=== PATIENT | male | born 1960 | race Caucasian/White ===

== ENCOUNTER 2016-07-18 06:53 | Emergency (ER) | payer BC, OTHER ==
[~2016-07-18] VITALS: Ht 180.3 cm; Wt 107.7 kg
[2016-07-18 06:55] VITALS: Ht 180.3 cm; Wt 107.7 kg
--- OUTSIDE RECORDS SUMMARY | 2016-07-18 06:56 | XMS REPORT | Referral Summary ---
Author Author [facility] Organization [facility] Address Unknown Phone Unavailable Care Team Providers Care Clinical Coder Name Role Phone [facility] Primary Care Physician Unavailable Encounter [facility] [id number] Date(s): 08/23/15 - 08/23/15 [facility] [address] [place] [address] [facility] Discharge Diagnosis: Hyperparathyroidism Discharge Disposition: 01-Home or Self Care Attending Physician: Myrna Bridges MD Admitting Physician: Myrna Bridges MD Vital Signs Most recent to 1 oldest [Reference Range]: Peripheral Pulse 78 bpm Rate [60-100 bpm] (08/23/15 8:14 AM) Blood Pressure 141/98 mmHg [90-140/60-90 mmHg] *HI* (08/23/15 8:14 AM) Problem List No data available for this section Allergies, Adverse Reactions, Alerts No Known Medication Allergies Medications atenolol 50 mg oral tablet mg tabs, Oral, Daily, 0 Refill(s) Start Date: 08/23/15 Status: Ordered hydrochlorothiazide 25 mg oral tablet mg tabs, Oral, Daily, 0 Refill(s) Start Date: 08/23/15 Status: Ordered lisinopril 20 mg oral tablet 20 mg 1 tabs, Oral, Daily, # 90 tabs, 1 Refill(s), [facility]acy: [facility] Start Date: 08/23/15 Status: Ordered lovastatin 20 mg oral tablet mg tabs, Oral, Daily, 0 Refill(s) Start Date: 08/23/15 Status: Ordered magnesium oxide Oral, 0 Refill(s) Start Date: 08/23/15 Status: Ordered prefect biotics prefect biotics, 0 Refill(s) Start Date: 08/23/15 Status: Ordered Results No data available for this section Immunizations No data available for this section Procedures No data available for this section Social History Social History Type Response Smoking Status Never smoker Assessment and Plan Extracted from: Title: Consult Note Author: Myrna Bridges MD Date: 08/23/15 Assessment/Plan 1-hyperparathyroidism: Reviewed all results with patient. Differential includes: Hyperparathyroidism vs benign familial hypercaciuric hypercalcemia vs malignancy related. being on hctz will confuse the picture stop hctz for now start lisinopril 20 mg daily in 1 month, get pth, bmp, 25 vitamin d, 1-25 vitamin d,24 h urine collection for calcium and creatinin Advised patient to keep hydrated. will call him about results and decide about management accordingly
--- OUTSIDE RECORDS SUMMARY | 2016-07-18 06:56 | XMS REPORT ---
Author Liza Dumont Organization [employer] Address Unknown Phone Unavailable Care Team Providers Care Control Systems Specialist Name Role Phone Liza Atkins CP Unavailable Allergies, Adverse Reactions, Alerts Substance Reaction Event Type N.K.D.A. Info Not Available Non Drug Allergy Problems Problem Type Condition Code Onset Dates Condition Status Assessment Encounter for examination required by Department of Transportation (DOT) Z02.89 Active Problem HTN (hypertension) I10 Active Medications Medication Code System Code Instructions Start Date End Date Status Dosage Ama-Rotan Plus Cold & Flu [facility] [address] 5-2-10-250 MG Orally not defined Lisinopril-Hydrochlorothiazide [facility] [address]-68 20-12.5 MG Orally Once a day 1 tablet Procedures Procedure Coding System Code Date UA- PART OF DOT CPT-4 10372 Feb 08, 2015 DOT PHYSICAL CPT-4 15632 Feb 08, 2015 Vital Signs Date/Time: Feb 08, 2015 BMI 35.95 Index Weight 250.6 lbs Height 70 in Blood Pressure Diastolic 102 mm Hg Blood Pressure Systolic 156 mm Hg Cardiac Monitoring Heart Rate 84 /min Temperature 98.1 F Oximetry 96 % Respiratory Rate 20 /min Results Name Result Date Reference Range Unit Abnormality Flag Urinalysis (UA) - IH ----Nitrates neg [id number] ----Protein neg [id number] 0 - 0 ----Leukocytes neg 20150208 ----pH 5.5 20150208 ----Specific [place] 1.020 [id number] ----Blood neg [id number] ----Urobilirubin 0.2 [id number] 0.2 - 1 ----Glucose neg [id number] 0 - 0 ----Bilirubin neg [id number] ----Ketones neg [id number] 0 - 0 Summary Purpose [employer] Submission
--- OUTSIDE RECORDS SUMMARY | 2016-07-18 06:56 | XMS REPORT | Referral Summary ---
Author Author [facility] Organization [facility] Address Unknown Phone Unavailable Care Team Providers Care Importer Or Exporter Name Role Phone [facility] Primary Care Physician Unavailable Encounter [facility] [id number] Date(s): 11/11/15 - 11/11/15 [facility] [address] [place], [place] [address] Discharge Disposition: 01-Home or Self Care Attending Physician: Aleks Ferreira MD Admitting Physician: Aleks Ferreira MD Referring Physician: Myrna Bridges MD Vital Signs No data available for this section Problem List Condition Effective Dates Status Health Status Informant Chicken Active pox(Confirmed) Hearing Active loss(Confirmed) High Active cholesterol(Confirme d) Hypertension(Confirm Active ed) Kidney Active stones(Confirmed) Obesity(Confirmed) Active patient Allergies, Adverse Reactions, Alerts No Known Medication Allergies Medications atenolol 50 mg oral tablet mg tabs, Oral, Daily, 0 Refill(s) Start Date: 08/23/15 Status: Ordered hydrochlorothiazide 25 mg oral tablet mg tabs, Oral, Daily, 0 Refill(s) Start Date: 08/23/15 Status: Ordered lisinopril 20 mg oral tablet 20 mg 1 tabs, Oral, Daily, # 90 tabs, 1 Refill(s), [facility]acy: [facility] [place] [place] Start Date: 08/23/15 Status: Ordered lovastatin 20 mg oral tablet mg tabs, Oral, Daily, 0 Refill(s) Start Date: 08/23/15 Status: Ordered magnesium oxide Oral, 0 Refill(s) Start Date: 08/23/15 Status: Ordered prefect biotics prefect biotics, 0 Refill(s) Start Date: 08/23/15 Status: Ordered Results No data available for this section Immunizations No data available for this section Procedures Procedure Date Related Diagnosis Body Site Surgery Social History Social History Type Response Smoking Status Never smoker Assessment and Plan No data available for this section
--- OUTSIDE RECORDS SUMMARY | 2016-07-18 06:56 | XMS REPORT ---
Author Author Liza Atkins Organization [facility] Address [address] [place], [place] [address] Care Team Providers Care Hand Clipper Name Role Phone Wilbert Liza Unavailable [phone] PROBLEMS Type Condition ICD9-CM Code EEC15-UO Code Onset Dates Condition Status SNOMED Code Problem HTN (hypertension) I10 Active 45005252 Assessment Encounter for examination required by Department of Transportation (DOT) Z02.89 Jan, Active ALLERGIES Substance Reaction Event Type Date Status N.K.D.A. Unknown Non Drug Allergy Jan, Unknown SOCIAL HISTORY No smoking Hx information available PLAN OF CARE VITAL SIGNS Height 70 in 2016-02-07 Weight 250.4 lbs 2016-02-07 BMI 35.92 kg/m2 2016-02-07 Temperature 98.1 degrees Fahrenheit 2016-02-07 Heart Rate 62 /min 2016-02-07 Respiratory Rate 20 /min 2016-02-07 Oximetry 96 % 2016-02-07 Blood pressure systolic 162 mm Hg 2016-02-07 Blood pressure diastolic 100 mm Hg 2016-02-07 MEDICATIONS Medication Instructions Dosage Frequency Start Date End Date Duration Status Atenolol 50 MG Orally twice a day 1 tablet 12h Active Ama-[place] Plus Cold & Flu 5-2-10-250 MG Active Lovastatin 20 MG Orally Once a day 1 tablet with a meal 24h Active RESULTS Name Result Date Reference Range Urinalysis (UA) - 2016-02-07 Color Character Blood trace Glucose neg 0 - 0 Bilirubin neg Ketones neg 0 - 0 Specific [place] 1.025 pH 6.5 Leukocytes trace Protein neg 0 - 0 Nitrates neg Urobilirubin 0.2 0.2 - 1 PROCEDURES Procedure Date Ordered Related Diagnosis Body Site UA- PART OF DOT Feb 07, 2016 DOT Physical Feb 07, 2016 IMMUNIZATIONS No Known Immunizations
--- OUTSIDE RECORDS SUMMARY | 2016-07-18 06:57 | XMS REPORT | Referral Summary ---
Author Organization Unknown Address Unknown Phone Unavailable Care Team Providers Care Route Aide Name Role Phone [facility] Primary Care Physician Unavailable Encounter [facility] [id number] Date(s): 05/07/14 - 05/07/[address] [facility] [address] [place] [address] [phone] Discharge Disposition: Home or Self Care Attending Physician: Neo Brooke MD Vital Signs No data available for this section Problem List No data available for this section Allergies, Adverse Reactions, Alerts No data available for this section Medications No data available for this section Results Chemistry Most recent to 1 oldest [Reference Range]: Creatinine Lvl 1.27 mg/dL [0.64-1.27 mg/dL] (05/07/14 11:41 AM) eGFR [>60] 60 1 (05/07/14 11:41 AM) 1Result Comment: Multiply eGFR results by 1.21 for race. Immunizations No data available for this section Procedures Procedure Date Related Diagnosis Body Site Collection of venous blood by venipuncture 05/07/14 Social History No data available for this section Assessment and Plan No data available for this section
--- OUTSIDE RECORDS SUMMARY | 2016-07-18 06:57 | XMS REPORT | Referral Summary ---
Author Author [facility] Organization [facility] Address Unknown Phone Unavailable Care Team Providers Care Payment Rep Name Role Phone [facility] Primary Care Physician Unavailable Encounter [facility] [id number] Date(s): 12/01/15 - 12/01/15 [facility] [address] [place], [place] [address] Discharge Disposition: 01-Home or Self Care Attending Physician: Aleks Ferreira MD Admitting Physician: Aleks Ferreira MD Vital Signs Most recent to 1 oldest [Reference Range]: Temperature Temporal 36.8 degC Artery [36.3-37.8 (12/01/15 7:03 AM) degC] Peripheral Pulse 54 bpm Rate [60-100 bpm] *LOW* (12/01/15 7:03 AM) Respiratory Rate 16 br/min [14-20 br/min] (12/01/15 7:03 AM) Blood Pressure 170/99 mmHg [90-140/60-90 mmHg] *HI* (12/01/15 7:03 AM) SpO2 96 % (12/01/15 7:03 AM) Problem List Condition Effective Dates Status Health Status Informant Vertigo(Confirmed) Active patient Chicken Active pox(Confirmed) Hearing Active loss(Confirmed) High Active cholesterol(Confirme d) Hypertension(Confirm Active ed) Kidney Active stones(Confirmed) Obesity(Confirmed) Active patient Allergies, Adverse Reactions, Alerts No Known Medication Allergies Medications atenolol 50 mg oral tablet mg tabs, Oral, Daily, 0 Refill(s) Start Date: 08/23/15 Status: Ordered HYDROcodone-acetaminophen 5 mg-325 mg oral tablet 1-2 tabs, Oral, q4hr, as needed for pain, # 24 tabs, 0 Refill(s) Start Date: 12/01/15 Status: Ordered lovastatin 20 mg oral tablet mg tabs, Oral, Daily, 0 Refill(s) Start Date: 08/23/15 Status: Ordered magnesium oxide Oral, 0 Refill(s) Start Date: 08/23/15 Status: Ordered prefect biotics prefect biotics, 0 Refill(s) Start Date: 08/23/15 Status: Ordered Results Chemistry Most recent to 1 oldest [Reference Range]: Surg. Parathyroid 11 pg/mL Hormone [11 (12/01/15 10:22 AM) pg/mL] Immunizations No data available for this section Procedures Procedure Date Related Diagnosis Body Site Collection of venous blood by venipuncture 12/01/15 Parathyroidectomy or exploration of 12/01/15 parathyroid(s);.. lipomas rem from back Surgery Social History Social History Type Response Smoking Status Never smoker Assessment and Plan Extracted from: Title: Ambulatory Patient Education Author: Angela Hutchinson RN Date: 12/01/15 [facility] [phone] Post Operative Instructions Activities Ambulate_X_ Unrestricted Exercise__ None_x_ Light__ UnrestrictedOther: 1 weeks Do not strain or lift more than 15 lbs. for 1 week. Diet __ Liquids (Jell-O, soups, etc., if you are nauseated) _X_ Begin with liquids and light foods then progress to regular diet. __ Regular diet __ No alcoholic beverages for 24 hours or while taking pain medication. Personal hygiene __ Bath _X_ Shower after _24_ hours__ Sponge Bath__ [facility] __ Remove dressing in ___hours__ Change dressing as necessary. __ Keep dressing clean and dry.__ Do not change dressing until you see your doctor. __ Elevate affected area above level of your heart._X_ Apply ice to area for _ 24__ hours ___Remove drain in ___ hours __ Other: If any problems occur or if you have any further questions, please contact your physician. In an emergency, call [phone] ([phone]), if you cannot reach your physician. If you find that you cannot contact your physician, but feel that your signs and symptoms warrant a physicians attention, go to an Emergency room which is the closest to you. Activities:Call your surgeon promptly if you have: __ Take Tylenol/Advil as needed for discomfort _X_ If fever over _101_ _ _X_ Prescription given for discomfort. Use as directed._X_ Pain not relieved by pain medication _X_ Bleeding or unexpected drainage from incision. _X_ Cleanse incision with Hydrogen peroxide twice daily and apply Polysporin ointment _X_ Resume routine medications._X_ Extreme redness or swelling around incision. Other: __ Inability to urinate by: _X_ Next dose of pain medicine may be given at __X_ Persistent nausea and vomiting. (Take with food to prevent stomach upset.) _X_ Stool softener_X_ Cough develops or difficulty breathing. Do NOT drive or operate hazardous machinery for 24 hours or while taking pain medication. Do not sign any important documents or make important decisions for 24 hours following surgery. When taking pain medicine, be careful as you walk or climb stairs as dizziness is not unusual. Check temperature every four hours during the day for two days. ENT Parathyroidectomy A parathyroidectomy is surgery to remove one or more parathyroid glands. These glands are in your neck. They produce a hormone (parathyroid hormone) that helps to control the level of calcium in your body. Each gland is very small, about the size of a pea. Most people have four parathyroid glands. You may have a parathyroidectomy if your body produces too much parathyroid hormone (hyperparathyroidism). This is usually caused by one or more of your parathyroid glands becoming enlarged from a type of noncancerous tumor (adenoma) . One of four methods may be used for a parathyroidectomy. An open, minimally invasive, video-assisted, or endoscopic procedure may be done. Some steps of the procedure will vary depending on the method being used. LET YOUR HEALTH CARE PROVIDER KNOW ABOUT: Any allergies you have. All medicines you are taking, including vitamins, herbs, eye drops, creams, and [id number]-[id number] medicines. Previous problems you or members of your family have had with the use of anesthetics. Any blood disorders you have. Previous surgeries you have had. Medical conditions you have. RISKS AND COMPLICATIONS Generally, this is a safe procedure. However, problems can occur and include: Excessive bleeding. Infection near the incision. Slow healing. Pooling of blood under the skin in the incision area (hematoma). Blood clots. Damage to: The nerves in your neck. Skin (scarring). Surrounding blood vessels. Need for additional surgery. A hoarse or weak voice. A condition in which your body does not make enough parathyroid hormone ( hypoparathyroidism). This is rare. Difficulty breathing. This is rare. BEFORE THE PROCEDURE Ask your health care provider: About changing or stopping your regular medicines. This is especially important if you are taking diabetes medicines or blood thinners. If you can take medicines such as aspirin and ibuprofen. These medicines can thin your blood. Do not take these medicines if your health care provider directs you not to. Do not eat or drink anything after midnight on the night before the procedure or as directed by your health care provider. You might be asked to shower or wash with an antibacterial soap. Plan to have someone take you home after the procedure. PROCEDURE An IV tube will be inserted into a vein in your hand or arm. Medicine will flow through this tube directly into your body. You may be given a medicine to help you relax (sedative). You will be given a medicine that makes you go to sleep (general anesthetic). As soon as you are asleep, the surgeon will make the incisions needed for the type of procedure that you are having. Open parathyroidectomy. For this procedure, the surgeon will make a single incision in the center of your neck. The incision will be about 24 inches long. Minimally invasive parathyroidectomy. For this procedure, the surgeon will make one small incision in the side of your neck. This smaller incision will be about 12 inches long. Before the procedure, you might be given an injection of a type of medicine that will help the surgeon to locate the gland. Video-assisted parathyroidectomy. For this procedure, two small incisions will be made in your neck. One incision is for the instruments that will be used to remove the gland. The other incision is for a tiny camera that helps the surgeon to see inside your neck. Endoscopic parathyroidectomy. For this procedure, the surgeon uses a tool that is like a small, flexible, tubelike telescope (endoscope). The endoscope is inserted through an incision that is made just above your collarbone. This method reduces the scarring and pain of a parathyroidectomy. The surgeon will remove the gland or glands that are causing problems and then close the incisions using stitches or other methods. The stitches are often hidden under the skin. AFTER THE PROCEDURE Your blood pressure, heart rate, breathing rate, and blood oxygen level will be monitored often until the medicines you were given have worn off. Your blood will be tested to check the calcium level in your body. You may have numbness around your mouth or in your fingers or toes for a day or two after the surgery. This is caused by a low level of calcium. You may have to take calcium supplements. This information is not intended to replace advice given to you by your health care provider. Make sure you discuss any questions you have with your health care provider. Document Released: 05/10/2009 Document Revised: 03/04/2015 Document Reviewed: [facility] Patient Information 2016 Payment plugin. Follow Up With: Where: When: Aleks Ferreira [address] [place], [place] [id number] Business (1) Within 1 week Comments:
--- OUTSIDE RECORDS SUMMARY | 2016-07-18 06:57 | XMS REPORT | Continuity of Care Document ---
Demographics Preferred Language Unknown Marital Status Unknown Oriental Orthodox Affiliation Unknown Race Unknown Ethnic Group Unknown Author Author [facility] Organization [facility] Address Unknown Phone Unavailable Allergies Medications Medication Packaging Start Date Stop Date Route Dosage Sig HYDROcodone-acetaminophen(HYDROcodone-acetaminophen 5 mg- 325 mg oral tablet) 12/08/2015 Oral 1-2 tabs, Oral, q4hr, PRN: as needed for pain, 24 tabs, 0 Refill(s) Problems Procedures Results Encounters ACCT No. Visit Date/Time Discharge Status Pt. Type Provider Facility Loc./Unit Complaint [id number] 12/02/2015 05:17:49 Document Registration
--- OUTSIDE RECORDS SUMMARY | 2016-07-18 06:57 | XMS REPORT | Referral Summary ---
Author Organization Unknown Address Unknown Phone Unavailable Care Team Providers Care C Winforms Developer Name Role Phone [facility] Primary Care Physician Unavailable Encounter [facility] [id number] Date(s): 06/10/14 - 06/10/14 [facility] [address] [place] [address] Discharge Disposition: Home or Self Care Attending Physician: Neo Brooke MD Vital Signs No data available for this section Problem List No data available for this section Allergies, Adverse Reactions, Alerts No data available for this section Medications No data available for this section Results No data available for this section Immunizations No data available for this section Procedures No data available for this section Social History No data available for this section Assessment and Plan No data available for this section
--- OUTSIDE RECORDS SUMMARY | 2016-07-18 06:57 | XMS REPORT | Referral Summary ---
Author Author [facility] Organization [facility] Address Unknown Phone Unavailable Care Team Providers Care Day Care Assistant Name Role Phone [facility] Primary Care Physician Unavailable Encounter [facility] [id number] Date(s): 12/08/15 - 12/08/15 [facility] [address] [place], [place] [address] Discharge Diagnosis: Benign positional vertigo Discharge Diagnosis: Dysphagia Discharge Diagnosis: Postoperative follow-up Discharge Disposition: -Home or Self Care Attending Physician: Aleks Ferreira MD Admitting Physician: Aleks Ferreira MD Referring Physician: [facility] Vital Signs No data available for this [...] 0 Refill(s) Start Date: 08/23/15 Status: Ordered lovastatin 20 mg oral tablet mg tabs, Oral, Daily, 0 Refill(s) Start Date: 08/23/15 Status: Ordered magnesium oxide Oral, 0 Refill(s) Start Date: 08/23/15 Status: Ordered prefect biotics prefect biotics, 0 Refill(s) Start Date: 08/23/15 Status: Ordered Results No data available for this section Immunizations No data available for this section Procedures Procedure Date Related Diagnosis Body Site Laryngoscopy, flexible fiberoptic; diagnostic 12/08/15 Parathyroidectomy or exploration of 12/01/15 parathyroid(s);.. lipomas rem from back Surgery Social History Social History Type Response Smoking Status Never smoker Assessment and Plan Extracted from: Title: Office Visit Note Author: Aleks Ferreira MD Date: 12/08/15 Assessment/Plan 1.Benign positional vertigo We discussed benign positional vertigoand in particular discussedpathophysiology as well as use of adaptation exercises. We also discussed possibility of Judi maneuver if problems were more bothersome. Ordered: Laryngoscopy, Flexible Fiberoptic; Diagnostic 16085 Office Visit Level 3 Est 00499 2.Dysphagia Mild muscular dysphagia which is resolving nicely. Ordered: Laryngoscopy, Flexible Fiberoptic; Diagnostic 23245 Office Visit Level 3 Est 02610 3.Postoperative follow-up Patient is doing very well postoperative from recent parathyroidectomy. He had an excellent intraoperativePTH drop following removal of the large adenoma. He plans routine follow-up review with Dr. Koenig in 1-2 months. Ordered: Office Visit Level 3 Est 72869
[2016-07-18] MEDS ORDERED: NORMAL SALINE 1,000 ML IV ONE (07:03)
--- NOTE | 2016-07-18 07:05 | NUR ---
EKG EKG TAKEN AND GIVEN TO DR SMITH
--- NOTE | 2016-07-18 07:08 | NUR ---
IV IVL STARTED AND BLOOD COLLECTED FOR LAB
--- OUTSIDE RECORDS SUMMARY | 2016-07-18 07:11 | XMS REPORT | Continuity of Care Document ---
Demographics Preferred Language Unknown Marital Status Unknown Lutheran Affiliation Unknown Race Unknown Ethnic Group Unknown Author Author [facility] Organization [facility] Address Unknown Phone Unavailable Allergies Medications Medication Packaging Start Date Stop Date Route Dosage Sig HYDROcodone-acetaminophen(HYDROcodone-acetaminophen 5 mg- 325 mg oral tablet) 12/08/2015 Oral 1-2 tabs, Oral, q4hr, PRN: as needed for pain, 24 tabs, 0 Refill(s) Problems Procedures Results Encounters ACCT No. Visit Date/Time Discharge Status Pt. Type Provider Facility Loc./Unit Complaint [id number] 12/02/2015 05:17:49 Document Registration
--- NOTE | 2016-07-18 07:14 | ERPDOC ---
Departure Disposition Decision Date: July 18, 2016 Disposition Decision Time: 09:36 Disposition: 01 DISCHARGED HOME, SELF-CARE Impression Impression Impression: Primary Impression: Atypical chest pain Severity: Moderate Condition: Improved Seen By: Physician only Referrals: YOUR PHYSICIAN 1 Week Patient Instructions: Noncardiac Chest Pain (ED) Problems/Meds/Labs Reviewed?: Yes Medications reviewed and manag: Yes Additional Instructions: We have evaluated you for various causes of chest pain. We did not find any life -threatening causes of your chest pain. Your symptoms are consistent with heartburn; consider taking zantac or pepcid as needed for your symptoms. Follow up with your doctor later this week. Follow up care ordered?: Yes Mental Status: Alert, Oriented HPI - Chest Pain General Stated Complaint: HIGH BLOOD PRESSURE, TINGLING Time Seen by Provider: 07:03 Source: patient Exam Limitations: no limitations HPI - Chest Pain Initial Comments 55yo man presents to the ER this AM for chest pain. Pt awoke this AM at 0300 with chest pain on his left side, associated with left arm tingling. He took his BP and found it to be 180/90; he took his atenolol and 162mg ASA and went back to bed. When he awoke again at 0400, his pain was persistent, so he decided to present for evaluation. Pt has had reasonably well-controlled HTN and a similar episode evaluated by his PCM. Pt is supposed to have a GXT, but has not been contacted by the clinic to schedule this yet. Occurred At: home Onset/Timing: Rapid, Constant Duration: 4-6 hrs Pain/Severity Scale: Now & Worst: 6/10 Activities at Onset/Context: sleep Location: substernal Quality: 'pain' Chest Pain Radiation: arms (left) Nitro Today/Relief: no nitro taken today Aspirin Treatment Today: 325 mg x 1 (x2), provided at home Prior Chest Pain/Cardiac Ruchi: no prior cardiac workup Hx of Similar Symptoms: Yes Allergies: Coded Allergies: No Known Allergies (Unverified , 07/18/16) Viagra/ED med in past 36 hrs: No Past History Patient Medical History (1) History of partial thyroidectomy Past Medical History Metabolic: hypertension GI: GERD Male: BPH, kidney stones Family History Family PMH: FOUND: other Social History Sexuality: female partner Review of Systems Cardiovascular Cardiac: chest pain, dyspnea on exertion, other (HTN) Neurological Comments Left arm paresthesias All other Systems All Other Systems: Reviewed and Negative Physical Exam General General Nourishment: well nourished, well developed, appears stated age, no acute distress, adult, obese General Body Habitus: well groomed Vitals and Pain First Documented Vital Signs Date Time Temp Pulse Resp B/P Pulse Ox O2 Delivery O2 Flow Rate FiO2 07/18/16 06:55 98.2 56 16 204/98 97 Room Air Weight: Kilograms: Height (feet): 5 Height (inches): 11.5 Triage Pain Scale: RN VS reviewed by Provider: Yes Normal Exams: Head: Normocephalic w/o trauma Eyes: Pupils are PERRLA w/ EOMI, No scleral icterus, irritation ENMT: No facial trauma, nasal exudates, pharyngeal erythema Neck: Full range of motion, without adenopathy, JVD Lymphatic: No lymphadenopathy Musculoskeletal: No tenderness, or deformity noted Integumentary: No rashes, hives, or bruising noted Neurologic: Patient is alert, and oriented Psychiatric: Patient exhibits, appropriate attention Respiratory (brief) Respiratory: FOUND: clear all bella, equal bilaterally, symmetrical, NOT FOUND : rales, wheezes Cardiovascular (brief) Cardiac: FOUND: regular rate, regular rhythm, NOT FOUND: click, gallop, murmur , pedal edema, peripheral edema, rub Capillary Refill: <2 sec Pulses: all distal extremities, equal, strong Abdomen (brief) Abdominal Brief: FOUND: bowel normo active x4, soft, NOT FOUND: distended, hepatosplenomegaly, pulsatile mass, tender Differential Diagnoses Considering: Acute LA, Anxiety/Panic, Angina, Costochondritis, Esophageal Spasm , GERD, Hyperventilation, Pericarditis, Pleurisy, Pneumothorax, Pneumonia, PSVT , Pulmonary Edema Progress Results/Orders Orders Procedure Category Date Status Time Cbc W/Auto LAB 07/18/16 Complete Diff-Reflex Manual 07:03 Bmp - Basic Metabolic LAB 07/18/16 Complete Panel 07:03 Probnp LAB 07/18/16 Complete 07:03 Troponin I W LAB 07/18/16 Complete Hemolysis Index 07:03 INR LAB 07/18/16 Complete 07:03 EKG EKG 07/18/16 Taken 07:03 Chest 1 View RAD 07/18/16 Resulted 07:03 Iv Lock (Ed Only) EDM 07/18/16 Transmitted 07:03 Normal Saline (Normal PHA 07/18/16 Complete Saline Iv) 07:03 Aspirin (Asa) PHA 07/18/16 Complete 07:15 Nitroglycerin PHA 07/18/16 Complete (Nitrostat) 07:15 G.I. Cocktail PHA 07/18/16 Complete (/Maalox/Lidocaine 08:00 Troponin I W LAB 07/18/16 Complete Hemolysis Index 08:33 Lab Results Laboratory Tests Test 07/18/16 07:09 07/18/16 08:48 White Blood Count 7.2T/MM3 Red Blood Count 6.07M/MM3 Hemoglobin 17.9GM/DL Hematocrit 52.7% Mean Corpuscular Volume 86.8UM3 Mean Corpuscular Hemoglobin 29.5UUG Mean Corpuscular Hemoglobin Concent 34.0GM/DL RDW Standard Deviation 42.8FL Platelet Count 239T/MM3 Mean Platelet Volume 9.5UM3 Immature Granulocyte % (Auto) 0.1% Neutrophils (%) (Auto) 62.6% Lymphocytes (%) (Auto) 25.3% Monocytes (%) (Auto) 6.9% Eosinophils (%) (Auto) 4.4% Basophils (%) (Auto) 0.7% Absolute Immature Granulocyte (auto 0.01T/MM3 Absolute Neutrophils (auto) 4.5T/MM3 Absolute Lymphocytes (auto) 1.8T/MM3 Absolute Monocytes (auto) 0.5T/MM3 Absolute Eosinophils (auto) 0.3T/MM3 Absolute Basophils (auto) 0.1T/MM3 Prothromb Time International Ratio 0.93 Turbidity < 20 Sodium Level 146MEQ/L Potassium Level 4.2MEQ/L Chloride Level 107MEQ/L Carbon Dioxide Level 27MEQ/L Anion Gap 12MEQ/L Blood Urea Nitrogen 24.0MG/DL Creatinine 0.9MG/DL Glomerular Filtration Rate Calc 88 BUN/Creatinine Ratio 27RATIO Glucose Level 113MG/DL Calculated Osmolality 286MOSM/KG Calcium Level 9.3MG/DL Icterus Index < 2 Troponin I < 0.012ng/ml < 0.012ng/ml QY-Goe-C-Type Natriuretic Peptide 121PG/ML Chemistry Specimen Hemolysis < 15 < 15 Medications Current ED Medications Sodium Chloride (Normal Saline IV) 1,000 ml @ 0 mls/hr Q0M ONCE IV Last administered on 07/18/16 07:27; Start 07/18/16 at 07:03; Stop 07/18/16 at 07:04 ; Status DC Aspirin (ASA) 324 mg O ONCE PO ; Start 07/18/16 at 07:15; Stop 07/18/16 at 07: 16; Status DC Nitroglycerin (Nitrostat) 0.4 mg Q5MIN PRN SL CHEST PAIN; Start 07/18/16 at 07: 15; Stop 07/18/16 at 10:05; Status DC Pharmacy Profile Note (/Maalox/ Lidocaine Soln) 30 ml O ONCE PO Last administered on 07/18/16 07:51; Start 07/18/16 at 08:00; Stop 07/18/16 at 08:01 ; Status DC Progress Progress CBC: NL BMP: Na 146; BUN elev; Gluc 113; Osmo elev Card: Trop neg; BNP 121 Coag: INR 0.93 CXR: neg Pt with neg cardiac enzymes 4 hours after onset of sx. Improved sx with GI cocktail. Suspect GERD as underlying cause, given timing and positioning (asleep /supine), body habitus, and occupation (home delivery driver). Will repeat troponin and give H2 sage. If repeat trop is neg, will d/c to home with f/u with PCM. Repeat trop is negative. No evidence of life-threatening causes of pts sx. Most likely GERD. F/u with PCM. Pt voiced understanding of dx, prognosis, tx, and f/ u need. EKG EKG : Rate: <60 Rhythm: sinus [place]: normal QRS: normal Intervals: normal ST/T: normal Interpreted by: signing physician Xray Xray : Xray: CXR Portable Interpretation: Normal, Interpreted by Me WALI SMITH DO July 18, 2016 07:14
[2016-07-18 07:15] LABS: BASOPHILS # (AUTO) 0.1 T/MM3 (0-0.2); BASOPHILS % (AUTO) 0.7 % (0-2); EOSINOPHILS # (AUTO) 0.3 T/MM3 (0-0.5); EOSINOPHILS % (AUTO) 4.4 % (0-4); HCT - HEMATOCRIT 52.7 % (41-53); HGB - HEMOGLOBIN 17.9 GM/DL (13.5-17.5); IMMATURE GRANULOCYTE # (AUTO) 0.01 T/MM3 (0.00-0.03); IMMATURE GRANULOCYTE % (AUTO) 0.1 % (0.0-0.5); LYMPHOCYTES # (AUTO) 1.8 T/MM3 (1-4.8); LYMPHOCYTES % (AUTO) 25.3 % (23-45); MEAN CORPUSCULAR HGB 29.5 UUG (26-34); MEAN CORPUSCULAR VOLUME 86.8 UM3 (80-100); MEAN PLATELET VOLUME 9.5 UM3 (9.4-12.4); MONOCYTES # (AUTO) 0.5 T/MM3 (0-0.8); MONOCYTES % (AUTO) 6.9 % (0-9.0); NEUTROPHILS #(AUTO)-ABSOLUTE 4.5 T/MM3 (1.8-7.7); NEUTROPHILS % (AUTO) 62.6 % (33-66); RED BLOOD COUNT 6.07 M/MM3 (4.50-5.90); WBC - WHITE BLOOD COUNT 7.2 T/MM3 (4.5-11.0)
[2016-07-18] MEDS ORDERED: NITROGLYCERIN 0.4 MG SUBLINGUAL TABLET SL PRN (07:15)
[2016-07-18] MEDS ORDERED: ASPIRIN 81 MG CHEWABLE TABLET PO ONE (07:15)
--- NOTE | 2016-07-18 07:15 | NUR ---
RADIOLOGY RADIOLOGY IN ROOM FOR PORTABLE FILM
[2016-07-18 07:21] LABS: INR 0.93 (0.77-1.03); PROTHROMBIN TIME 10.2 SEC (9.48-12.52)
[2016-07-18] MEDS ORDERED: LOVA20TA3 PO (07:21)
[2016-07-18] MEDS ORDERED: ATEN100T PO (07:21)
[2016-07-18 07:29] LABS: ANION GAP 12 MEQ/L (5-15); BUN/CREATININE RATIO 27 RATIO (6-26); CALCIUM 9.3 MG/DL (8.4-10.2); CHLORIDE 107 MEQ/L (98-107); CO2 - CARBON DIOXIDE 27 MEQ/L (22-30); CREATININE 0.9 MG/DL (0.8-1.5); GLOMERULAR FILTRATION RATE 88; GLUCOSE 113 MG/DL (75-110); POTASSIUM 4.2 MEQ/L (3.6-5); SODIUM 146 MEQ/L (134-144)
[2016-07-18 07:40] LABS: PROBNP 121 PG/ML (0-175)
--- NOTE | 2016-07-18 07:55 | NUR ---
MEDICATION GI COCKTAIL ADMISTERED ORDERED
--- NOTE | 2016-07-18 07:56 | DI ---
Indication: ITS.REASON: Chest pain, hypertension PROCEDURE: CHEST 1 VIEW: Encounter: Initial Comparison: None FINDINGS: The lungs are clear. There is no abnormal airspace opacity, pleural effusion or pneumothorax identified. The heart size, pulmonary vasculature and mediastinum are within normal limits. No significant skeletal abnormality is seen. IMPRESSION: No acute cardiopulmonary abnormality. .
[2016-07-18] MEDS ORDERED: G.I. COCKTAIL 30ml PO ONE (08:00)
--- NOTE | 2016-07-18 08:30 | NUR ---
IVF IVF INFUSED AT THIS TIME
--- NOTE | 2016-07-18 09:55 | NUR ---
IV IV DC'D WITH CATH INTACT
[2016-07-18 09:57] VITALS: BP 141/71; PULSE 52; RESP 16; TEMP 98.2; O2SAT 95
--- NOTE | 2016-07-18 09:57 | NUR ---
DISMISSAL DISMISSAL INST TO PT WITHOUT FURTHER QUESTIONS. PT LEFT DEPARTMENT PAIN FREE IN NO DISTRESS
== END 2016-07-18 09:57 | disposition home or self-care (01) ==
LOC: ED 06:53
DX: R07.89 Other chest pain (principal); R20.2 Paresthesia of skin; I10 Essential (primary) hypertension
CPT/HCPCS: 36415; 71010; 80048; 83880; 84484; 85025; 85610; 93005; 96360; 99284; J7030; J7999